=== PATIENT | female | born 1930 | race Caucasian/White ===

== ENCOUNTER 2019-03-05 14:29 | Emergency (ER) | payer MEDICARE, BC ==
[2019-03-05 14:38] VITALS: BP 178/102; PULSE 91
--- NOTE | 2019-03-05 15:21 | EDM.PDOC ---
ED HPI GENERAL MEDICAL PROBLEM - General Chief Complaint: Neuro Symptoms/Deficits Stated Complaint: MEDICAL VIA [facility] Time Seen by Provider: 03/05/19 15:00 Source of Information: Reports: Patient, EMS, Family History Limitations: Reports: Altered Mental Status - History of Present Illness INITIAL COMMENTS - FREE TEXT/NARRATIVE: Latisha is an 88 year old female, presents to the ED today via EMS as family reported patient had issues with speaking earlier and seems "weaker" then normal. Patient does have hx of CVA, she is on warfarin, no recent fever or illness. Patient arrives here able to speak but seems to have to think about what she is saying first, she has a right sided facial droop, uncertain if this is new or from prior CVA and patient unable to tell me, she also has right LE weakness and right UE drift. Patient denies any pain or sob. Patient denies any recent fall or trauma. - Related Data Allergies Allergy/AdvReac Type Severity Reaction Status Date / Time No Known Allergies Allergy Verified 03/05/19 15:01 Home Meds: Home Meds Furosemide 20 mg PO DAILY 07/22/14 [History] Potassium Chloride [Klor-Con M20] 20 meq PO DAILY 07/22/14 [History] Warfarin [Coumadin] 5 mg PO ASDIRECTED 11/12/14 [History] Acetaminophen [Tylenol Extra Strength] 500 mg PO DAILY PRN 09/13/15 [History] Calcium Carbonate/Vitamin D3 [Calcium 600 + Vit D 200] 1 tab PO DAILY 09/13/15 [ History] Docusate Sodium [Colace] 100 mg PO DAILY 09/13/15 [History] Multivitamin with Minerals [Multiple Vitamin] 1 tab PO DAILY 09/13/15 [History] Warfarin Sodium 7.5 mg PO ASDIRECTED 09/17/15 [History] Donepezil [Aricept] 1 tab PO DAILY 03/05/19 [History] Metoprolol Tartrate 1 tab PO BID 03/05/19 [History] Past Medical History HEENT History: Reports: Cataract Cardiovascular History: Reports: Afib, Hypertension, Pacemaker Gastrointestinal History: Reports: Chronic Constipation 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: Musculoskeletal History: Reports: Arthritis Neurological History: Reports: CVA Hematologic History: Reports: Blood Transfusion(s) Oncologic (Cancer) History: Reports: Other (See Below) Other Oncologic History: skin cancer, patient unsure of type - Infectious Disease History Infectious Disease History: Reports: Chicken Pox, Measles, Mumps - Past Surgical History HEENT Surgical History: Reports: Cataract Surgery Cardiovascular Surgical History: Reports: Pacer Social & Family History - Family History Family Medical History: Noncontributory - Tobacco Use Smoking Status *Q: Never Smoker - Recreational Drug Use Recreational Drug Use: No ED ROS GENERAL - Review of Systems Review Of Systems: ROS reveals no pertinent complaints other than HPI. ED EXAM, NEURO - Physical Exam Exam: See Below Exam Limited By: Altered Mental Status General Appearance: Alert, WD/WN Eye Exam: Bilateral Eye: EOMI Ears: Normal External Exam Nose: Normal Inspection Throat/Mouth: Normal Inspection, Normal Oropharynx Head Exam: Atraumatic, Normocephalic Neck: Normal Inspection, Supple, Non-Tender Respiratory/Chest: No Respiratory Distress, Lungs Clear Cardiovascular: Regular Rate, Rhythm GI/Abdominal: Normal Bowel Sounds, Soft, Non-Tender Neurological: Alert, Other (right facial droop, right arm drift, decreased strength right LE) Back Exam: Normal Inspection Extremities: Normal Inspection Psychiatric: Normal Affect, Normal Mood Skin Exam: Warm, Dry, Intact Course - Vital Signs Last Recorded V/S: Last Vital Signs Temp 36.4 C 03/05/19 14:55 Pulse 91 03/05/19 14:55 Resp 16 03/05/19 14:55 BP 178/102 H 03/05/19 14:55 Pulse Ox 97 03/05/19 14:55 Latisha is an 88 year old female, hx of CVA, on warfarin, presents via ems per family request with speech difficulty. Please refer to HPI and focused exam. Patient's family arrived shortly after initial exam and report that patient is at her baseline, right sided deficits are from her prior CVA. Blood work obtained to rule out any infectious or electrolyte abnormality. CBC returns with stable HGB, white count normal at 7.3, mild thrombocytopenia with plt count of 122. INR just therapeutic at 2.17. CMP with sodium of 135, potassium of 4.1, kidney function stable, UA returns with UTI with large LE, 5-10 WBC and nitrite positive. CT of head negative for any acute or new findings. Patient and family updated on plan of care, will start on antibiotics pending culture. Patient can follow up with PCP this next week as needed. Encouraged to stay well hydrated. Reasons to return to the ED discussed, patient and family agreeable and patient discharged in stable condition. - Orders/Labs/Meds Orders: Active Orders 24 hr Category Date Time Status Head wo Cont [CT] Stat Exams 03/05/19 15:06 Taken CULTURE URINE [RM] Stat Lab 03/05/19 15:33 Received Labs: Laboratory Tests 03/05/19 03/05/19 03/05/19 Range/Units 15:12 15:14 15:14 WBC 7.3 (4.5-11.0) K/uL RBC 4.73 (3.30-5.50) M/uL Hgb 14.3 (12.0-15.0) g/dL Hct 43.8 (36.0-48.0) % MCV 93 (80-98) fL MCH 30 (27-31) pg MCHC 33 (32-36) % Plt Count 122 L (150-400) K/uL Neut % (Auto) 70 H (36-66) % Lymph % (Auto) 22 L (24-44) % [place] % (Auto) 8 H (2-6) % Eos % (Auto) 1 L (2-4) % Baso % (Auto) 0 (0-1) % PT (9.5-12.0) sec INR (0.80-1.20) Sodium 135 L (140-148) mmol/L Potassium 4.1 (3.6-5.2) mmol/L Chloride 97 L (100-108) mmol/L Carbon Dioxide 32 (21-32) mmol/L Anion Gap 10.1 (5.0-14.0) mmol/L BUN 11 (7-18) mg/dL Creatinine 0.8 D (0.6-1.0) mg/dL Est Cr Clr Drug Dosing 42.90 mL/min Estimated GFR (MDRD) > 60 (>60) Glucose 98 (74-106) mg/dL Calcium 9.2 (8.5-10.1) mg/dL Total Bilirubin 1.0 D (0.2-1.0) mg/dL AST 24 (15-37) U/L ALT 19 (12-78) U/L Alkaline Phosphatase 97 (46-116) U/L Total Protein 6.8 (6.4-8.2) g/dL Albumin 3.3 L (3.4-5.0) g/dL Globulin 3.5 (2.3-3.5) g/dL Albumin/Globulin Ratio 0.9 L (1.2-2.2) Urine Color Yellow Urine Appearance Turbid Urine pH 8.0 (4.5-8.0) Ur Specific [place] 1.010 (1.008-1.030) Urine Protein 30 H (NEGATIVE) mg/dL Urine Glucose (UA) Normal (NEGATIVE) mg/dL Urine Ketones Negative (NEGATIVE) mg/dL Urine Occult Blood Moderate (NEGATIVE) Urine Nitrite Positive H (NEGATIVE) Urine Bilirubin Negative (NEGATIVE) Urine Urobilinogen 1 (NORMAL) mg/dL Ur Leukocyte Esterase Large (NEGATIVE) Urine RBC 0-5 (0-5) Urine WBC 5-10 H (0-5) Ur Epithelial Cells Rare Amorphous Sediment Not seen Urine Bacteria Many Urine Mucus Not seen 03/05/19 Range/Units 15:14 WBC (4.5-11.0) K/uL RBC (3.30-5.50) M/uL Hgb (12.0-15.0) g/dL Hct (36.0-48.0) % MCV (80-98) fL MCH (27-31) pg MCHC (32-36) % Plt Count (150-400) K/uL Neut % (Auto) (36-66) % Lymph % (Auto) (24-44) % [place] % (Auto) (2-6) % Eos % (Auto) (2-4) % Baso % (Auto) (0-1) % PT 22.4 H (9.5-12.0) sec INR 2.17 H (0.80-1.20) Sodium (140-148) mmol/L Potassium (3.6-5.2) mmol/L Chloride (100-108) mmol/L Carbon Dioxide (21-32) mmol/L Anion Gap (5.0-14.0) mmol/L BUN (7-18) mg/dL Creatinine (0.6-1.0) mg/dL Est Cr Clr Drug Dosing mL/min Estimated GFR (MDRD) (>60) Glucose (74-106) mg/dL Calcium (8.5-10.1) mg/dL Total Bilirubin (0.2-1.0) mg/dL AST (15-37) U/L ALT (12-78) U/L Alkaline Phosphatase (46-116) U/L Total Protein (6.4-8.2) g/dL Albumin (3.4-5.0) g/dL Globulin (2.3-3.5) g/dL Albumin/Globulin Ratio (1.2-2.2) Urine Color Urine Appearance Urine pH (4.5-8.0) Ur Specific [place] (1.008-1.030) Urine Protein (NEGATIVE) mg/dL Urine Glucose (UA) (NEGATIVE) mg/dL Urine Ketones (NEGATIVE) mg/dL Urine Occult Blood (NEGATIVE) Urine Nitrite (NEGATIVE) Urine Bilirubin (NEGATIVE) Urine Urobilinogen (NORMAL) mg/dL Ur Leukocyte Esterase (NEGATIVE) Urine RBC (0-5) Urine WBC (0-5) Ur Epithelial Cells Amorphous Sediment Urine Bacteria Urine Mucus Departure - Departure Time of Disposition: 17:00 Disposition: Home, Self-Care 01 Clinical Impression: TIA (transient ischemic attack), Urinary tract infection in female - Discharge Information Instructions: Transient Ischemic Attack, Urinary Tract Infection, Adult Referrals: Floyd Adair MD [Primary Care Provider] - Forms: ED Department Discharge Additional Instructions: Start antibiotics today and take as directed. Stay well hydrated. Likely had a mild TIA (mini stroke). Follow up with primary care provider this week in clinic. Return here with any concerns or worsening symptoms. - My Orders Last 24 Hours: My Active Orders 03/05/19 15:06 Head wo Cont [CT] Stat 03/05/19 15:33 CULTURE URINE [RM] Stat - Assessment/Plan Last 24 Hours: My Active Orders 03/05/19 15:06 Head wo Cont [CT] Stat 03/05/19 15:33 CULTURE URINE [RM] Stat
--- NOTE | 2019-03-05 16:43 | CRLCT ---
INDICATION: Speech difficulty COMPARISON: July 22, 2014 TECHNIQUE: A CT volumetric acquisition was performed of the brain without IV contrast. Please note that all CT scans at this facility use dose modulation, iterative reconstruction, and/or weight-based dosing when appropriate to reduce radiation dose to as low as reasonably achievable. FINDINGS: Chronic areas of old infarction involving the left frontoparietal and right occipital lobes. Generalized cortical atrophy with chronic white matter changes likely related to small vessel ischemic disease. No hemorrhage or mass effect. No hydrocephalus. No fracture. Left external auditory canal cerumen. Clear visualized sinuses. IMPRESSION: Chronic bilateral areas of ischemia. No hydrocephalus or infarct. No mass effect. Please note that all CT scans at this facility use dose modulation, iterative reconstruction, and/or weight-based dosing when appropriate to reduce radiation dose to as low as reasonably achievable. Dictated by Nik Millan MD @ Mar 05 2019 4:40PM Signed by Dr. Nik Millan @ Mar 05 2019 4:42PM
== END 2019-03-05 17:07 | disposition home or self-care (01) ==
LOC: JP.ED 14:29
DX: G45.9 Transient cerebral ischemic attack, unspecified (principal); N39.0 Urinary tract infection, site not specified; I48.91 Unspecified atrial fibrillation; I10 Essential (primary) hypertension; Z95.0 Presence of cardiac pacemaker; Z79.01 Long term (current) use of anticoagulants; Z79.899 Other long term (current) drug therapy
CPT/HCPCS: 36415; 70450; 80053; 81001; 85025; 85610; 87086; 87088; 87186; 99284; 99285-25

== ENCOUNTER 2019-03-21 11:14 | Emergency (ER) | payer MEDICARE, BC ==
--- NOTE | 2019-03-21 11:30 | EDM.PDOC ---
ED HPI GENERAL MEDICAL PROBLEM - General Chief Complaint: General Stated Complaint: CHEST PAIN Time Seen by Provider: 03/21/19 11:15 Source of Information: Reports: Patient, Family History Limitations: Reports: No Limitations - History of Present Illness INITIAL COMMENTS - FREE TEXT/NARRATIVE: 88-year-old female who just finished an antibiotic scheduled for a UTI, seemed to be okay at 4:30 this morning but when she woke up at 6 AM she was complaining of left-sided chest pain and upper abdominal pain. No nausea or vomiting, no apparent shortness of breath. When her symptoms persisted her son decided to bring her in to be checked. She looks comfortable. Onset: Unknown/Unsure (Patient developed symptoms sometime overnight) Location: Reports: Chest, Abdomen Associated Symptoms: Denies: Cough, Loss of Appetite, Nausea/Vomiting, Shortness of Breath - Related Data Allergies Allergy/AdvReac Type Severity Reaction Status Date / Time No Known Allergies Allergy Verified 03/05/19 15:01 Home Meds: Home Meds Furosemide 20 mg PO DAILY 07/22/14 [History] Potassium Chloride [Klor-Con M20] 20 meq PO DAILY 07/22/14 [History] Warfarin [Coumadin] 5 mg PO ASDIRECTED 11/12/14 [History] Acetaminophen [Tylenol Extra Strength] 500 mg PO DAILY PRN 09/13/15 [History] Calcium Carbonate/Vitamin D3 [Calcium 600 + Vit D 200] 1 tab PO DAILY 09/13/15 [ History] Docusate Sodium [Colace] 100 mg PO DAILY 09/13/15 [History] Multivitamin with Minerals [Multiple Vitamin] 1 tab PO DAILY 09/13/15 [History] Warfarin Sodium 2.5 mg PO ASDIRECTED 09/17/15 [History] Donepezil [Aricept] 1 tab PO DAILY 03/05/19 [History] Metoprolol Tartrate 1 tab PO BID 03/05/19 [History] Past Medical History HEENT History: Reports: Cataract Cardiovascular History: Reports: Afib, Hypertension, Pacemaker Gastrointestinal History: Reports: Chronic Constipation 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: Musculoskeletal History: Reports: Arthritis Neurological History: Reports: CVA Hematologic History: Reports: Blood Transfusion(s) Oncologic (Cancer) History: Reports: Other (See Below) Other Oncologic History: skin cancer, patient unsure of type - Infectious Disease History Infectious Disease History: Reports: Chicken Pox, Measles, Mumps - Past Surgical History HEENT Surgical History: Reports: Cataract Surgery Cardiovascular Surgical History: Reports: Pacer Social & Family History - Family History Family Medical History: Noncontributory - Tobacco Use Smoking Status *Q: Never Smoker - Caffeine Use Caffeine Use: Reports: None ED ROS GENERAL - Review of Systems Review Of Systems: See Below Constitutional: Denies: Fever, Chills HEENT: Reports: No Symptoms Respiratory: Denies: Shortness of Breath, Cough Cardiovascular: Reports: Chest Pain GI/Abdominal: Reports: Abdominal Pain (Upper abdomen) : Reports: Other (Recent urinary tract infection) Skin: Reports: No Symptoms ED EXAM, GENERAL - Physical Exam Exam: See Below Exam Limited By: No Limitations General Appearance: Alert, No Apparent Distress, Other (Looks comfortable) Neck: Supple Respiratory/Chest: No Respiratory Distress, Lungs Clear Cardiovascular: Systolic Murmur, Irregularly Irregular GI/Abdominal: Soft, Tender (Some tenderness in the epigastric area to palpation) Extremities: Other (Trace symmetric edema) Neurological: Alert, Disoriented Psychiatric: Flat Affect Skin Exam: Warm (Somewhat disoriented and confused), Dry EKG INTERPRETATION Rhythm: A-Fib Course - Vital Signs Last Recorded V/S: Last Vital Signs Temp 98 F 03/21/19 11:23 Pulse 71 03/21/19 11:23 Resp 19 03/21/19 11:23 BP 167/82 H 03/21/19 11:23 Pulse Ox 98 03/21/19 11:23 - Orders/Labs/Meds Orders: Active Orders 24 hr Category Date Time Status EKG Documentation Completion [RC] ASDIRECTED Care 03/21/19 11:29 Active EKG 12 Lead [EK] Routine Ther 03/21/19 11:29 Ordered Labs: Laboratory Tests 03/21/19 03/21/19 03/21/19 Range/Units 11:38 11:46 11:46 WBC 6.7 (4.5-11.0) K/uL RBC 4.14 (3.30-5.50) M/uL Hgb 12.7 (12.0-15.0) g/dL Hct 39.0 (36.0-48.0) % MCV 94 (80-98) fL MCH 31 (27-31) pg MCHC 33 (32-36) % Plt Count 123 L (150-400) K/uL Neut % (Auto) 71 H (36-66) % Lymph % (Auto) 18 L (24-44) % [place] % (Auto) 8 H (2-6) % Eos % (Auto) 2 (2-4) % Baso % (Auto) 1 (0-1) % Sodium 136 L (140-148) mmol/L Potassium 3.6 (3.6-5.2) mmol/L Chloride 100 (100-108) mmol/L Carbon Dioxide 30 (21-32) mmol/L Anion Gap 9.6 (5.0-14.0) mmol/L BUN 11 (7-18) mg/dL Creatinine 0.8 (0.6-1.0) mg/dL Est Cr Clr Drug Dosing 34.24 mL/min Estimated GFR (MDRD) > 60 (>60) Glucose 113 H (74-106) mg/dL Calcium 8.7 (8.5-10.1) mg/dL Total Bilirubin 0.9 (0.2-1.0) mg/dL AST 22 (15-37) U/L ALT 18 (12-78) U/L Alkaline Phosphatase 86 (46-116) U/L Troponin I 0.029 (0.000-0.056) ng/mL Total Protein 6.1 L (6.4-8.2) g/dL Albumin 2.9 L (3.4-5.0) g/dL Globulin 3.2 (2.3-3.5) g/dL Albumin/Globulin Ratio 0.9 L (1.2-2.2) Lipase 59 L (73-393) U/L Urine Color Yellow (YELLOW) Urine Appearance Clear (CLEAR) Urine pH 7.0 (5.0-8.0) Ur Specific [place] 1.015 (1.008-1.030) Urine Protein Negative (NEGATIVE) mg/dL Urine Glucose (UA) Negative (NEGATIVE) mg/dL Urine Ketones Negative (NEGATIVE) mg/dL Urine Occult Blood Moderate (NEGATIVE) Urine Nitrite Negative (NEGATIVE) Urine Bilirubin Negative (NEGATIVE) Urine Urobilinogen 1 (0.2-1.0) EU/dL Ur Leukocyte Esterase Trace H (NEGATIVE) Urine RBC 5-10 H (0-5) Urine WBC 0-5 (0-5) Ur Epithelial Cells Not seen Amorphous Sediment Not seen Urine Bacteria Not seen Urine Mucus Not seen - Re-Assessments/Exams Free Text/Narrative Re-Assessment/Exam: 03/21/19 12:31 EKG shows atrial fibrillation with occasional PVC beats. A UA was obtained by mini catheter UA, CBC CMP lipase and troponin were obtained. Patient was monitored, remained what appeared to be comfortable without complaints. 03/21/19 12:48 UA is now clear other than a few RBCs. Troponin is within normal limits, CBC normal, CMP reassuring. Patient may have developed some mild gastritis from the recent antibiotic, some oral antacids may be beneficial if pain recurs. No need for hospitalization. Departure - Departure Time of Disposition: 12:54 Disposition: Home, Self-Care 01 Clinical Impression: Epigastric pain - Discharge Information Instructions: Gastritis, Adult, [id number] Referrals: Floyd Adair MD [Primary Care Provider] - Forms: ED Department Discharge Care Plan Goals: Continue your current medications, liquid antacids may be beneficial if pain recurs. Advance diet and activity as tolerated. Return anytime if you redevelop pain and it is persistent or you develop other concerns. - My Orders Last 24 Hours: My Active Orders 03/21/19 11:29 EKG Documentation Completion [RC] ASDIRECTED EKG 12 Lead [EK] Routine - Assessment/Plan Last 24 Hours: My Active Orders 03/21/19 11:29 EKG Documentation Completion [RC] ASDIRECTED EKG 12 Lead [EK] Routine
[2019-03-21 11:34] VITALS: BP 167/82; PULSE 71
== END 2019-03-21 12:55 | disposition home or self-care (01) ==
LOC: JP.ED 11:14
DX: R10.13 Epigastric pain (principal); I10 Essential (primary) hypertension; C44.90 Unspecified malignant neoplasm of skin, unspecified; Z86.73 Personal history of transient ischemic attack (TIA), and cerebral infarction without residual deficits; Z79.899 Other long term (current) drug therapy; Z79.01 Long term (current) use of anticoagulants
CPT/HCPCS: 36415; 80053; 81001; 83690; 84484; 85025; 93005; 93010; 99283; 99285-25